=== PATIENT | male | born 1980 | race Caucasian/White ===

== ENCOUNTER 2018-03-28 12:59 | Emergency (ER) | payer SELFPAY | END 2018-03-28 14:02 | disposition home or self-care (01) | LOC: ERS 12:59 | DX: S29.012A Strain of muscle and tendon of back wall of thorax, initial encounter (principal); J45.909 Unspecified asthma, uncomplicated; Z79.899 Other long term (current) drug therapy; Z87.442 Personal history of urinary calculi; X50.0XXA Overexertion from strenuous movement or load, initial encounter | CPT/HCPCS: 99283 ==

== ENCOUNTER 2024-02-01 11:49 | Inpatient (IN) | payer SELFPAY ==
[~2024-02-01 11:49] MED LIST: Iopamidol 370 76% 100 ML VIAL ONE
[2024-02-01] MEDS ORDERED: Ondansetron PF 4 MG/2 ML Vial ONE (12:02)
[2024-02-01] MEDS ORDERED: Pantoprazole 40 MG VIAL ONE (12:02)
[2024-02-01 12:29] LABS: #Basophils Less than 0.03 10x3/uL (0.0-0.2); %Basophils 0.2 % (0.0-1.0); %Eosinophils 1.2 % (0.0-10.0); %Neutrophils 76.1 % (42.0-75.0); Hematocrit 44.2 % (42.0-52.0); Hemoglobin 14.9 g/dL (14.0-18.0); Mean Corpuscular HGB CONC 33.7 g/dL (32.0-36.0); Mean Corpuscular Hemoglobin 25.1 pg (27.0-31.0); Mean Corpuscular Volume 74.4 fL (78.0-98.0); Mean Platelet Volume 9.5 fL (7.4-10.4); Platelet Count 302 10x3/uL (130-400); RBC Distribution Width 14.6 % (11.5-14.5); Red Blood Cell (RBC) Count 5.94 mill/uL (4.70-6.10)
[2024-02-01 12:37] LABS: INR-International Normal Ratio 1.1
[2024-02-01 12:38] LABS: PTT 27.1 sec (22.9-36.1)
[2024-02-01] MEDS ORDERED: predniSONE 20 MG TAB ONE (12:52)
[2024-02-01] MEDS ORDERED: Magnesium 2 GM/50 ML BAG (IN WATER) ONE (12:53)
[2024-02-01 12:54] LABS: Microcytosis SLIGHT = 6-15 cells HPF (0-5); Platelet Adequacy Comment Platelets Normal; Polychromasia SLIGHT = 2-3 cells HPF (0-2)
[2024-02-01] MEDS ORDERED: Albuterol 2.5 MG (3 mL) NEB ONE (13:04)
[2024-02-01] MEDS ORDERED: Ipratropium Bromide 2.5 ml Neb ONE (13:04)
[2024-02-01] MEDS ORDERED: Albuterol 2.5 MG (0.5 mL) NEB ONE (13:04)
[2024-02-01 13:12] LABS: Anion Gap 15 mmol/L (10-20); Globulin 4.7 g/dL (2.4-3.5)
[2024-02-01] MEDS ORDERED: Midazolam HCl 2 mg/2 ml Vial ONE (13:14)
[2024-02-01 13:17] LABS: ALT (SGPT) 23 U/L (8-55); AST (SGOT) 24 U/L (5-34); Albumin 4.4 g/dL (3.5-5.0); Alkaline Phosphatase 72 U/L (40-110); BUN (Urea Nitrogen) 13 mg/dL (8.9-20.6); Bilirubin, Total 1.4 mg/dL (0.2-1.2); Calc. Creatinine Clearance 0 mL/min (70-130); Calcium 10.5 mg/dL (7.8-10.44); Carbon Dioxide 26 mmol/L (22-29); Chloride 97 mmol/L (98-107); Estimated GFR 79; Glucose 139 mg/dL (70-105); Lipase 16 U/L (8-78); Magnesium 1.9 mg/dL (1.6-2.6); Potassium 3.9 mmol/L (3.5-5.1); Protein, Total 9.1 g/dL (6.0-8.3); Sodium 134 mmol/L (136-145)
[2024-02-01] MEDS ORDERED: Ondansetron PF 4 MG/2 ML Vial IVP PRN (13:28)
[2024-02-01] MEDS ORDERED: Ipratropium/Albuterol 3 ML NEB NEB PRN (13:32)
[2024-02-01] MEDS: Sodium Chloride 0.9% 1,000 ML IV SCH (15:35)
[2024-02-01] MEDS: methylPREDNISolone Sod Succ 40 MG VIAL IVP SCH (15:44)
[2024-02-01 16:58] VITALS: BMI 22.4
[2024-02-02 07:47] LABS: #Basophils Less than 0.03 10x3/uL (0.0-0.2); #Eosinphils Less than 0.03 10x3/uL (0.0-0.7); %Basophils 0.2 % (0.0-1.0); %Eosinophils 0.1 % (0.0-10.0); %Lymphocytes 8.6 % (21.0-51.0); %Monocytes 2.6 % (0.0-10.0); %Neutrophils 87.9 % (42.0-75.0); Hematocrit 38.4 % (42.0-52.0); Mean Corpuscular HGB CONC 31.3 g/dL (32.0-36.0); Mean Corpuscular Hemoglobin 24.8 pg (27.0-31.0); Mean Corpuscular Volume 79.5 fL (78.0-98.0); Mean Platelet Volume 9.7 fL (7.4-10.4); Platelet Count 280 10x3/uL (130-400); RBC Distribution Width 14.8 % (11.5-14.5); Red Blood Cell (RBC) Count 4.83 mill/uL (4.70-6.10)
[2024-02-02 08:23] LABS: Anion Gap 17 mmol/L (10-20); Globulin 3.9 g/dL (2.4-3.5)
[2024-02-02 08:39] LABS: ALT (SGPT) 20 U/L (8-55); AST (SGOT) 29 U/L (5-34); Albumin 3.6 g/dL (3.5-5.0); Alkaline Phosphatase 52 U/L (40-110); BUN (Urea Nitrogen) 19 mg/dL (8.9-20.6); Bilirubin, Total 0.9 mg/dL (0.2-1.2); Calc. Creatinine Clearance 75 mL/min (70-130); Calcium 8.9 mg/dL (7.8-10.44); Carbon Dioxide 21 mmol/L (22-29); Chloride 103 mmol/L (98-107); Estimated GFR 86; Glucose 142 mg/dL (70-105); Magnesium 2.2 mg/dL (1.6-2.6); Potassium 4.7 mmol/L (3.5-5.1); Protein, Total 7.5 g/dL (6.0-8.3); Sodium 136 mmol/L (136-145)
[2024-02-02] MEDS: Pantoprazole 40 MG VIAL IVP SCH (10:22)
[2024-02-02] MEDS: Sodium Chloride 0.9% 1,000 ML IV SCH (22:11)
[2024-02-03 07:19] LABS: #Basophils Less than 0.03 10x3/uL (0.0-0.2); %Basophils 0.1 % (0.0-1.0); %Eosinophils 0.3 % (0.0-10.0); %Lymphocytes 18.4 % (21.0-51.0); %Monocytes 6.6 % (0.0-10.0); Hematocrit 36.2 % (42.0-52.0); Hemoglobin 11.2 g/dL (14.0-18.0); Mean Corpuscular HGB CONC 30.9 g/dL (32.0-36.0); Mean Corpuscular Hemoglobin 24.5 pg (27.0-31.0); Mean Corpuscular Volume 79.2 fL (78.0-98.0); Mean Platelet Volume 9.5 fL (7.4-10.4); Platelet Count 222 10x3/uL (130-400); RBC Distribution Width 15.3 % (11.5-14.5); Red Blood Cell (RBC) Count 4.57 mill/uL (4.70-6.10)
[2024-02-03 07:34] LABS: Phosphorus 2.4 mg/dL (2.3-4.7)
[2024-02-03 07:36] LABS: Anion Gap 10 mmol/L (10-20)
[2024-02-03 07:39] LABS: BUN (Urea Nitrogen) 25 mg/dL (8.9-20.6); Calc. Creatinine Clearance 94 mL/min (70-130); Calcium 8.4 mg/dL (7.8-10.44); Carbon Dioxide 23 mmol/L (22-29); Chloride 108 mmol/L (98-107); Estimated GFR 109; Glucose 88 mg/dL (70-105); Magnesium 2.2 mg/dL (1.6-2.6); Potassium 3.8 mmol/L (3.5-5.1); Sodium 137 mmol/L (136-145)
[2024-02-03] MEDS ORDERED: MD-Gastroview 120 ML BOT ONE (11:34)
[2024-02-04 08:45] VITALS: BP 111/79; TEMP 98.3
[2024-02-04 10:47] LABS: Anion Gap 14 mmol/L (10-20)
[2024-02-04 10:51] LABS: BUN (Urea Nitrogen) 18 mg/dL (8.9-20.6); Calc. Creatinine Clearance 85 mL/min (70-130); Calcium 8.8 mg/dL (7.8-10.44); Carbon Dioxide 21 mmol/L (22-29); Chloride 103 mmol/L (98-107); Estimated GFR 100; Glucose 140 mg/dL (70-105); Magnesium 2.1 mg/dL (1.6-2.6); Phosphorus 2.3 mg/dL (2.3-4.7); Potassium 3.3 mmol/L (3.5-5.1); Sodium 135 mmol/L (136-145)
[2024-02-04] MEDS: Potassium Chloride 20 MEQ TAB PO SCH (12:35)
== END 2024-02-04 14:40 | disposition home or self-care (01) | DRG 389 ==
LOC: SUATTDRO 11:49 → ERS 11:49 → SURG A 13:27
PROVIDERS: ADMIT Internal Medicine; ATTEND Internal Medicine
DX: K56.600 Partial intestinal obstruction, unspecified as to cause (principal); E87.1 Hypo-osmolality and hyponatremia; E83.52 Hypercalcemia; D72.829 Elevated white blood cell count, unspecified; R10.33 Periumbilical pain; Z88.5 Allergy status to narcotic agent
CPT/HCPCS: 36415; 43753; 71045; 74018; 74177; 74250; 80048; 80053; 82310; 83690; 83735; 84100; 85025; 85610; 85730; 86850; 86900; 86901; 93005; 94640; 96365; 96375; C9113; J2250; J2405; J2920; J3475; J7050; J7512; J7611; Q9963; Q9967